=== PATIENT | male | born 1945 | race African-American/Black ===

== ENCOUNTER 2017-09-18 23:26 | Emergency (ER) | payer MEDICARE, OTHER ==
--- NOTE | 2017-09-18 23:52 | ED Physician Chart ---
ED Chief Complaint/HPI - Patient Information Date Seen:: 09/18/17 Time Seen:: 23:47 Chief Complaint:: diarhea for 3 wks History of Present Illness:: 71 yr old black male who ate some food at a gathering 3 wks ago and they all got sick with copuis watery stools no fever or abd pain Allergies:: Allergies Allergy/AdvReac Type Severity Reaction Status Date / Time No Known Allergies Allergy Verified 09/18/17 23:45 Vitals:: Vital Signs - 8 hr 09/18/17 23:30 Temp 97.7 F HR 92 RR 18 BP 136/85 O2 Sat % 100 Historian:: Patient, Family Member ED Review of Systems - Review of Systems General/Constitutional: No fever, No chills, No weight loss, No weakness, No diaphoresis, No edema, No loss of appetite Skin: No skin lesions, No rash, No bruising Head: No headache, No light-headedness Eyes: No loss of vision, No pain, No diplopia ENT: No earache, No nasal drainage, No sore throat, No tinnitus Neck: No neck pain, No swelling, No thyromegaly, No stiffness, No mass noted Cardio Vascular: No chest pain, No palpitations, No PND, No orthopnea, No edema Pulmonary: No SOB, No cough, No sputum, No wheezing GI: Diarrhea G/U: No dysuria, No frequency, No hematuria Musculoskeletal: No bone or joint pain, No back pain, No muscle pain Endocrine: No polyuria, No polydipsia Psychiatric: No prior psych history, No depression, No anxiety, No suicidal ideation Hematopoietic: No bruising, No lymphadenopathy Allergic/Immuno: No urticaria, No angioedema Neurological: No syncope, No focal symptoms, No weakness, No paresthesia, No headache, No seizure, No dizziness, No confusion, No vertigo ED Past Medical History - Past Medical History Past Medical History: No significant medical hx ED Physical Exam - Physical Examination General/Constitutional: Awake, Well-developed, well-nourished, Alert, No distress, GCS 15, Non-toxic appearing, Ambulatory Head: Atraumatic Eyes: Lids, conjuctiva normal, PERRL, EOMI Skin: Nl inspection, No rash, No skin lesions, No ecchymosis, Well hydrated, No lymphadenopathy ENMT: External ears, nose nl, Nasal exam nl, Lips, teeth, gums nl Neck: Nontender, Full ROM w/o pain, No JVD, No nuchal rigidity, No bruit, No mass, No stridor Respiratory: Nl effort/Exclusion, Clear to Auscultation, No Wheeze/Rhonchi/Rales Cardio Vascular: RRR, No murmur, gallop, rubs, NL S1 S2 GI: No tenderness/rebounding/guarding, No organomegaly, No hernia, Normal BS's, Nondistended, No mass/bruits, No McBurney tenderness : No CVA tenderness Extremities: No tenderness or effusion, Full ROM, normal strength in all extremities, No edema, Normal digits & nails Neuro/Psych: Alert/oriented, DTR's symmetric, Normal sensory exam, Normal motor strength, Judgement/insight normal, Mood normal, Normal gait, No focal deficits Misc: Normal back, No paraspinal tenderness ED Assessment - Assessment General Assessment: gastroenteritis with watery diarhea for 3 wks ED Septic Shock - . Is Septic Shock (SBP<90, OR Lactate>4 mmol\L) present?: No - <6hrs of presentation: Vital Signs: Vital Signs - 8 hr /11/28 23:30 Temp 97.7 F HR 92 RR 18 BP 136/85 O2 Sat % 100 ED Reassessment (Disposition) - Reassessment Reassessment Condition:: Unchanged - Diagnosis Diagnosis:: gastroenteritis - Patient Disposition Discharge/Transfer:: Home (rx bactrim DS F/U PMD RETURN IF SXS WORSEN)
== END 2017-09-18 23:55 | disposition home or self-care (01) ==
LOC: ER 23:26
DX: K52.9 Noninfective gastroenteritis and colitis, unspecified (principal)
CPT/HCPCS: Z7502

== ENCOUNTER 2017-10-17 12:43 | Emergency (ER) | payer OTHER ==
[2017-10-17] MEDS ORDERED: Sodium Chloride 0.45% 1,000 ML IV ONE (13:07)
--- NOTE | 2017-10-17 13:13 | ED Physician Chart ---
ED Chief Complaint/HPI - Patient Information Date Seen:: 10/17/17 Time Seen:: 13:06 Chief Complaint:: THROAT DISCOMFORT History of Present Illness:: THIS IS A 71 YO MALE WHO STOPPED TAKING CARDIZIEM AND HYDROCHOLROTHIAZIDE. THE PATIENT IS CONCERNED ABOUT HIS THROAT DISCOMFORT BUT DENIES CHEST PAIN. HE DENIES HEART DISEASE AND LIVER DISEASE BUT ADMITS TO HEAVY DRINKING OF ALCOHOL. HE DENIES SMOKING AND DRUG ABUSE. HIS FAMILY STATES THAT HE HAS CANCER BUT DOES NOT WANT ANYONE TO KNOW IT. HE ADMITS TO DECREASE APPETITE, WEIGHT LOSS AND FLUID INTAKE. Allergies:: Allergies Allergy/AdvReac Type Severity Reaction Status Date / Time No Known Allergies Allergy Verified 09/18/17 23:45 Vitals:: Vital Signs - 8 hr 10/17/17 12:54 Temp 97.9 F HR 119 RR 22 BP 134/97 O2 Sat % 99 Historian:: Patient, Family Member () ED Review of Systems - Review of Systems General/Constitutional: No fever, No chills, No weight loss, No weakness, No diaphoresis, No edema, No loss of appetite Skin: No skin lesions, No rash, No bruising Head: No headache, No light-headedness Eyes: No loss of vision, No pain, No diplopia ENT: No earache, No nasal drainage, Sore throat (THROAT PAIN), No tinnitus Neck: Neck pain, No swelling, No thyromegaly, No stiffness, No mass noted Cardio Vascular: No chest pain, No palpitations, No PND, No orthopnea, No edema Pulmonary: No SOB, No cough, No sputum, No wheezing GI: No nausea, No vomiting, No diarrhea, No pain, No melena, No hematochezia, No constipation, No hematemesis G/U: No dysuria, No frequency, No hematuria Musculoskeletal: No bone or joint pain, No back pain, No muscle pain Endocrine: No polyuria, No polydipsia Psychiatric: No prior psych history, No depression, No anxiety, No suicidal ideation Hematopoietic: No bruising, No lymphadenopathy Allergic/Immuno: No urticaria, No angioedema Neurological: No syncope, No focal symptoms, No weakness, No paresthesia, No headache, No seizure, No dizziness, No confusion, No vertigo ED Past Medical History - Past Medical History Obtainable: Yes Past Medical History: HTN Family History: None Social History: Non Smoker, No Alcohol, No Drug Use, Surgical History: None Psychiatricy History: None Medication: Reviewed Family Medical History - Family Member Mother History Unknown: Yes ED Physical Exam - Physical Examination General/Constitutional: Awake, Well-developed, well-nourished, Alert, No distress, GCS 15, Non-toxic appearing, Ambulatory Other Gen/Cons comments:: DEHYDRATED Head: Atraumatic Eyes: Lids, conjuctiva normal, PERRL, EOMI Skin: Nl inspection, No rash, No skin lesions, No ecchymosis, Well hydrated, No lymphadenopathy ENMT: External ears, nose nl, Nasal exam nl, Lips, teeth, gums nl Neck: Nontender, Full ROM w/o pain, No JVD, No nuchal rigidity, No bruit, No mass, No stridor Respiratory: Nl effort/Exclusion, Clear to Auscultation, No Wheeze/Rhonchi/Rales Cardio Vascular: RRR, No murmur, gallop, rubs, NL S1 S2 GI: No tenderness/rebounding/guarding, No organomegaly, No hernia, Normal BS's, Nondistended, No mass/bruits, No McBurney tenderness : No CVA tenderness Extremities: No tenderness or effusion, Full ROM, normal strength in all extremities, No edema, Normal digits & nails Neuro/Psych: Alert/oriented, DTR's symmetric, Normal sensory exam, Normal motor strength, Judgement/insight normal, Mood normal, Normal gait, No focal deficits Misc: Normal back, No paraspinal tenderness ED Labs/Radiology/EKG Results - Lab Results Results: Abnormal Lab Results 10/17/17 10/17/17 10/17/17 13:15 13:15 13:15 WBC RBC Hgb Hct MCV MCH MCHC Differential RDW Plt Count MPV Neutrophils % Lymphocytes % Monocytes % Eosinophils % Basophils % PT 10.9 INR 1.05 PTT (Actin FS) 25.0 L Sodium Potassium Chloride Carbon Dioxide Anion Gap BUN Creatinine Est GFR ( Amer) Est GFR (Non-Af Amer) BUN/Creatinine Ratio Glucose Calcium Total Bilirubin AST ALT Alkaline Phosphatase Troponin I 0.03 Total Protein Albumin Globulin Albumin/Globulin Ratio TSH 1.75 10/17/17 10/17/17 13:15 13:15 WBC 7.4 RBC 5.61 Hgb 12.9 Hct 39.6 L MCV 70.5 L MCH 23.0 L MCHC Differential 32.5 RDW 15.1 Plt Count 332 MPV 7.6 Neutrophils % 67.2 Lymphocytes % 17.5 L Monocytes % 14.5 H Eosinophils % 0.6 Basophils % 0.2 PT INR PTT (Actin FS) Sodium 140 Potassium 3.7 Chloride 109 H Carbon Dioxide 23.3 Anion Gap 11.4 BUN 18 Creatinine 1.0 Est GFR ( Amer) TNP Est GFR (Non-Af Amer) TNP BUN/Creatinine Ratio 18.0 Glucose 159 H Calcium 8.3 L Total Bilirubin 0.9 AST 14 ALT 14 Alkaline Phosphatase 245 H Troponin I Total Protein 5.2 L Albumin 2.7 L Globulin 2.5 Albumin/Globulin Ratio 1.1 TSH - Radiology Results Results: CT SCAN OF THE NECK AND CHEST = NAD AND HAS MULTIPLE ENLARGED LYMPHNODES. - EKG Interpretations EKG Time:: 13:19 Rate & Rhythm: RATE= 112,SINUS [place]: RIGHT AXIS Intervals: NO ECTOPY SEEN. ED Assessment - Assessment General Assessment: SUPRACLAVICULAR LYMPHADENOPATHY LEFT SIDE ED Septic Shock - . Is Septic Shock (SBP<90, OR Lactate>4 mmol\L) present?: No - <6hrs of presentation: Vital Signs: Vital Signs - 8 hr /10/28 12:54 Temp 97.9 F HR 119 RR 22 BP 134/97 O2 Sat % 99 ED Reassessment (Disposition) - Reassessment Reassessment Condition:: Improved - Diagnosis Diagnosis:: DEHYDRATION LEFT SUPERACLAVICULAR ADENOPATHY - Aftercare/Follow up Instructions Aftercare/Follow-Up Instructions:: Counseled pt regarding lab results/diagnosis & need follow up, Refer to Discharge Instructions, Counseled pt & family regarding lab results/diagnosis & need follow up - Patient Disposition Discharge/Transfer:: Home Condition at Disposition:: Improved ED Discharge Plan - Patient Disposition Admit/Discharge/Transfer: PT DISCHARGED HOME Condition at Disposition: Improved
[2017-10-17 13:23] LABS: % BASOPHILS 0.2 % (0.0-2.0); % EOSINOPHILS 0.6 % (0.0-5.0); % LYMPHOCYTES 17.5 % (20.0-50.0); % MONOCYTES 14.5 % (2.0-10.0); % NEUTROPHILS 67.2 % (40.0-80.0); HEMATOCRIT 39.6 % (41.0-60); HEMOGLOBIN 12.9 gm/dL (12-16); LYMPHOCYTE ABSOLUTE 1.3 Th/cmm (1.5-3.0); MEAN CELL VOLUME 70.5 fl (80-99); MEAN CORPUSCULAR HGB CONC 32.5 pg (28.0-36.0); MEAN PLATELET VOLUME 7.6 fl; MONOCYTE ABSOLUTE 1.1 Th/cmm (0.3-1.0); PLATELET COUNT 332 Th/cmm (150-400); RED BLOOD COUNT 5.61 Mil/cmm (3.80-5.80); RED CELL DISTRIBUTION WIDTH 15.1 % (11.5-20.0); WHITE BLOOD COUNT 7.4 Th/cmm (4.8-10.8)
[2017-10-17 13:36] LABS: INR 1.05 (0.5-1.4); PROTHROMBIN TIME (TEST) 10.9 SECONDS (9.5-11.5)
[2017-10-17] MEDS ORDERED: IOHEXOL 350mgI/mL 150mL IV ONE (13:36)
[2017-10-17 13:39] LABS: ALB/GLOB RATIO 1.1 (1.0-1.8); ALBUMIN 2.7 gm/dL (4.2-5.5); ALKALINE PHOSPHATASE 245 U/L (34-104); ANION GAP 11.4 (7.0-16.0); BILIRUBIN,TOTAL 0.9 mg/dL (0.3-1.0); BUN - UREA NITROGEN 18 mg/dL (7-25); CALCIUM SERUM 8.3 mg/dL (8.6-10.3); CARBON DIOXIDE 23.3 mEq/L (21.0-31.0); CHLORIDE 109 mEq/L (98-107); GLUCOSE 159 mg/dL (70-105); POTASSIUM SERUM 3.7 mEq/L (3.5-5.1); SGOT 14 U/L (13-39); SGPT/ALT 14 U/L (7-52); SODIUM SERUM 140 mEq/L (136-145); TOTAL PROTEIN,SERUM 5.2 gm/dL (6.0-8.3)
[2017-10-17] MEDS ORDERED: Lactated Ringer 1,000 ML IV ONE (15:52)
[2017-10-17] MEDS ORDERED: Morphine Sulfate 2 mg/mL 1mL Syr ONE (16:37)
[2017-10-17] MEDS ORDERED: Morphine Sulfate 2 mg/mL 1mL Syr IVP STA (16:47)
--- NOTE | 2017-10-18 08:57 | Diagnostic Imaging Report ---
Portable chest x-ray HISTORY: Pain The overall heart size is difficult to assess with portable technique in a poor inspiration. No acute focal prominent processes. No hilar or mediastinal abnormalities. IMPRESSION: 1. No acute focal pulmonary processes
--- NOTE | 2017-10-18 09:01 | Diagnostic Imaging Report ---
CT angiogram of the chest with intravenous contrast into CTA) HISTORY: Pain Total DLP equals 320 CTDI equals 8.0 Following administration of intravenous contrast, axial sections were obtained from a level above the clavicles down to level below the diaphragm. The exam demonstrates multiple enlarged lymph nodes at the base of the neck particularly on the left side. The heart is somewhat enlarged. Multiple mildly enlarged lymph nodes are scattered within the mediastinum. The largest is within the azygos and aortopulmonary window regions measuring approximately 1.8 cm. Etiology uncertain. No abnormal hilar masses. No pleural fluid identified. Accentuation of the lower interstitial lung markings. However, no acute focal pulmonary processes are seen. There is normal opacification the main, right, and left pulmonary arteries. No intraluminal filling defects. Specifically, no evidence of pulmonary embolism. Limited sections below the diaphragm demonstrate mild enlargement of the left adrenal gland. This is partially visualized. Discrete lesion cannot be outlined. Significance should be correlated clinically. IMPRESSION: 1. Mildly enlarged mediastinal lymph nodes along with multiple mildly enlarged lymph nodes at the base of the left neck. Etiology uncertain. 2. No evidence pulmonary embolism 3. Mild enlargement of the left adrenal gland. Significance is uncertain.
--- NOTE | 2017-10-18 09:03 | Diagnostic Imaging Report ---
CT scan soft tissues of the neck with intravenous contrast HISTORY: Pain, swelling Total DLP equals 468 CTDI equals 12.0 Following administration of intravenous contrast, axial sections were obtained from the level below orbits down to level below the thoracic inlet. The exam demonstrates a normal appearance of the epiglottis, valleculae, and perform sinuses. No definite abnormality seen through the region of the vocal cords. The cervical trachea appears normal. There are multiple lymph nodes scattered throughout the neck. Enlarged lymph nodes are seen within the left lower neck area. The largest measures approximately 2.5 cm. Etiology is indeterminate. There is preservation of normal margins about the major vascular landmarks and major muscular bundles of the neck. Atherosclerotic calcification seen to the carotid arteries. The parotid glands appear normal bilaterally. The submandibular glands appear normal. Degenerative changes noted throughout the spine. IMPRESSION: 1. Evidence of lymphadenopathy particularly in the left lower neck area. Etiology uncertain. Follow-up recommended. 2. Severe degenerative changes throughout the spine
== END 2017-10-17 18:30 | disposition home or self-care (01) ==
LOC: ER 12:43
DX: R59.0 Localized enlarged lymph nodes (principal); E86.0 Dehydration; I10 Essential (primary) hypertension
CPT/HCPCS: 99285; 96361; 96374; 96375; 93005; 71045; 71275; 70491; 84484; 36415; 84443; 85025; 85610; 85730; 80053; J2270; J1885